=== PATIENT | male | born 1970 | race Caucasian/White ===

== ENCOUNTER → 2019-10-15 | Outpatient (CLI) | payer BC ==
--- NOTE | 2019-10-15 21:37 | MR ---
EXAMINATION TYPE: MR shoulder LT wo con DATE OF EXAM: 10/15/2019 COMPARISON: None HISTORY: LT Shoulder pain TECHNIQUE: Multiplanar, multisequence imaging of the left shoulder is performed without contrast. FINDINGS: Rotator Cuff: Supraspinatus tendon is torn and retracted to the level of the acromion. Infraspinatus tendon is attenuated and irregular and likely partially torn Acromioclavicular Joint: Hypertrophic changes are present causing mass effect on the musculotendinous junction of supraspinatus, distal acromion shows a spur Glenohumeral Joint: Intact Labrum: The labrum appears grossly intact given limitation of non-arthrogram study. Biceps Tendon: The long head of biceps is in normal location within bicipital groove, fluid is presen t along the tendon . Bone marrow signal: Pseudocysts are present within the humeral head. Other: There is fluid signal present in the subacromial subdeltoid bursa. IMPRESSION: Rotator cuff tear, correlate for impingement.
== END ==
LOC: RADMRIMAIN 20:42
PROVIDERS: ATTEND Orthopaedic Surgery
DX: M75.102 Unspecified rotator cuff tear or rupture of left shoulder, not specified as traumatic (principal)

== ENCOUNTER → 2020-10-15 | Outpatient (CLI) | payer BC ==
--- NOTE | 2020-10-17 11:40 | NM ---
EXAMINATION TYPE: NM thyroid image w uptake DATE OF EXAM: 10/16/2020 COMPARISON: NONE HISTORY: E04.2 nontoxic multinodular goiter TECHNIQUE: Thyroid iodine uptake is calculated and images performed after the oral administration of 299 uCi 1-123 Capsule. FINDINGS: There is normal distribution of activity throughout the gland. The 4 hour iodine uptake is calculated at 9.3% (normal range 8-14%). The 24-hour iodine uptake is calculated at 20.5% (normal ra nge 15-35%). IMPRESSION: Normal thyroid scan and uptake.
== END | disposition home or self-care (01) ==
LOC: RADNMMAIN 08:46
PROVIDERS: ATTEND Internal Medicine Endocrinology, Diabetes & Metabolism
DX: E04.2 Nontoxic multinodular goiter (principal)
CPT/HCPCS: 78014; A9516

== ENCOUNTER 2020-12-06 14:57 | Emergency (ER) | payer BC ==
[2020-12-06 15:05] VITALS: RESP 18; TEMP 97.9
--- NOTE | 2020-12-06 15:25 | ED ---
General Adult HPI - General Chief complaint: ENT Stated complaint: Diff swallowing,Mass in throat Time Seen by Provider: 12/06/20 15:22 Source: patient Mode of arrival: ambulatory Limitations: no limitations - History of Present Illness Initial comments: Patient presents the ED with his for evaluation. Patient states that he was recently diagnosed with a right-sided thyroid "goiter", for which he is seeing an registered dental assistant rda. He states that he recently had an appointment with his registered dental assistant rda, during which she discovered a left-sided neck mass on examination. Patient states that he is scheduled to have a CT done later this month for further evaluation of this neck mass. Patient states that over the past couple of months he has developed progressive dysphagia, although he states that he is still able to eat and drink. Patient states that today he has noticed some "numbness" along his anterior neck bilaterally in the area of his m asses, and this has concerned him. Patient denies any other areas of numbness, and he denies any area of focal weakness. Patient denies having any pain, fever or chills, headache, visual changes, speech difficulty, odynophagia, sore throat, cough or cold symptoms, chest pain, dyspnea, palpitations, dizziness, nausea or vomiting, abdominal pain, diarrhea, urinary symptoms, or any other symptoms or complaints. - Related Data Allergies Allergy/AdvReac Type Severity Reaction Status Date / Time No Known Allergies Allergy Verified 12/06/20 15:05 Review of Systems ROS Statement: Those systems with pertinent positive or pertinent negative responses have been documented in the HPI. ROS Other: All systems not noted in ROS Statement are negative. Past Medical History Past Medical History: Thyroid Disorder History of Any Multi-Drug Resistant Organisms: None Reported Past Surgical History: No Surgical Hx Reported Past Psychological History: No Psychological Hx Reported Smoking Status: Former smoker Past Alcohol Use History: None Reported Past Drug Use History: Marijuana General Exam Limitations: no limitations General appearance: alert, in no apparent distress Head exam: Present: atraumatic, normocephalic Eye exam: Present: normal appearance, PERRL, EOMI ENT exam: Present: normal oropharynx, mucous membranes moist Neck exam: Present: normal inspection, full ROM, other (No significant mass is appreciated on my examination; patient has no tenderness with palpation along anterior neck and thyroid gland; trachea is in midline). Absent: tenderness Respiratory exam: Present: normal lung sounds bilaterally. Absent: respiratory distress, wheezes, rales, rhonchi, stridor Cardiovascular Exam: Present: regular rate, normal rhythm, normal heart sounds, other (Normal radial pulses bilaterally) GI/Abdominal exam: Present: soft. Absent: distended, tenderness, guarding Extremities exam: Present: full ROM. Absent: pedal edema Neurological exam: Present: alert, oriented X3, CN II-XII intact. Absent: motor sensory deficit Psychiatric exam: Present: normal affect, normal mood Skin exam: Present: warm, dry, intact, normal color Course Vital Signs 12/06/20 15:01 Temperature 97.9 F Pulse Rate 58 L Respiratory 18 Rate Blood Pressure 150/90 O2 Sat by Pulse 98 Oximetry Medical Decision Making - Lab Data Result diagrams: 12/06/20 15:34 12/06/20 15:34 Lab Results 12/06/20 12/06/20 Range/Units 15:34 15:34 WBC 5.4 (3.8-10.6) k/uL RBC 5.12 (4.30-5.90) m/uL Hgb 16.2 (13.0-17.5) gm/dL Hct 45.8 (39.0-53.0) % MCV 89.3 (80.0-100.0) fL MCH 31.5 (25.0-35.0) pg MCHC 35.3 (31.0-37.0) g/dL RDW 12.9 (11.5-15.5) % Plt Count 206 (150-450) k/uL MPV 6.4 Neutrophils % 58 % Lymphocytes % 29 % Monocytes % 6 % Eosinophils % 3 % Basophils % 1 % Neutrophils # 3.1 (1.3-7.7) k/uL Lymphocytes # 1.6 (1.0-4.8) k/uL Monocytes # 0.3 (0-1.0) k/uL Eosinophils # 0.2 (0-0.7) k/uL Basophils # 0.1 (0-0.2) k/uL Sodium 136 L (137-145) mmol/L Potassium 4.2 (3.5-5.1) mmol/L Chloride 104 (98-107) mmol/L Carbon Dioxide 26 (22-30) mmol/L Anion Gap 6 mmol/L BUN 16 (9-20) mg/dL Creatinine 0.85 (0.66-1.25) mg/dL Est GFR (CKD-EPI)AfAm >90 (>60 ml/min/1.73 sqM) Est GFR (CKD-EPI)NonAf >90 (>60 ml/min/1.73 sqM) Glucose 93 (74-99) mg/dL Calcium 9.4 (8.4-10.2) mg/dL TSH 0.606 (0.465-4.680) mIU/L - Radiology Data Radiology results: report reviewed (CT soft tissue neck with IV contrast: There is a rounded low-density area right thyroid lobe consistent with a cyst) Disposition Clinical Impression: Thyroid cyst Disposition: HOME SELF-CARE Condition: Stable Is patient prescribed a controlled substance at d/c from ED?: No Referrals: Sujit Guerrero DO [Primary Care Provider] - 1-2 days
[2020-12-06] MEDS ORDERED: SODIUM CHLORIDE 0.9% 1,000 ML IV ONE (15:32)
[2020-12-06 15:47] LABS: Basophils # (A) 0.1 k/uL (0-0.2); Basophils % (A) 1 %; Eosinophils # (A) 0.2 k/uL (0-0.7); Eosinophils % (A) 3 %; HCT 45.8 % (39.0-53.0); HGB 16.2 gm/dL (13.0-17.5); Lymphocytes # (A) 1.6 k/uL (1.0-4.8); Lymphocytes % (A) 29 %; MCH 31.5 pg (25.0-35.0); MCHC 35.3 g/dL (31.0-37.0); MCV 89.3 fL (80.0-100.0); Mean Platelet Volume 6.4; Monocytes # (A) 0.3 k/uL (0-1.0); Monocytes % (A) 6 %; Neutrophils # (A) 3.1 k/uL (1.3-7.7); Neutrophils % (A) 58 %; Platelet Count 206 k/uL (150-450); RBC 5.12 m/uL (4.30-5.90); RDW 12.9 % (11.5-15.5); WBC 5.4 k/uL (3.8-10.6)
[2020-12-06 16:04] LABS: African American GFR (CKD) >90 (>60 ml/min/1.73 sqM); Anion Gap 6 mmol/L; Blood Urea Nitrogen 16 mg/dL (9-20); Calcium 9.4 mg/dL (8.4-10.2); Carbon Dioxide 26 mmol/L (22-30); Chloride 104 mmol/L (98-107); Glucose 93 mg/dL (74-99); Non-African American GFR(CKD) >90 (>60 ml/min/1.73 sqM); Potassium 4.2 mmol/L (3.5-5.1); Sodium 136 mmol/L (137-145)
--- NOTE | 2020-12-06 16:40 | CT ---
EXAMINATION TYPE: CT soft tissue neck w con DATE OF EXAM: 12/06/2020 COMPARISON: None HISTORY: Left side thyroid nodule CT DLP: 436.8 mGycm Automated exposure control for dose reduction was used. CONTRAST: Performed with IV Contrast, patient injected with 100 mL of Isovue 300. Images were obtained from the aortic arch to the top of the frontal sinuses with IV contrast. Superior mediastinum is intact. There is normal branching pattern of the great vessels. There is roun ded 12 mm fluid density in the right thyroid lobe consistent with a cyst. There is normal opacification of the carotid arteries and jugular veins. There is minimal plaque form ation at the left carotid artery bifurcation. Trachea appears normal. Epiglottis is normal. Subglottic trachea appears normal. The tongue appears normal. Tonsils and adenoids appear normal. Parotid glands and submandibular salivary glands are symmetric. There are a few anterior triangle cervical lymph nodes bilaterally. These measure up to 12 mm. There is normal aeration of the paranasal sinuses. I see no bony destructive process. Prevertebral so ft tissues appear intact. There is anterior spurring in the lower cervical spine. There is no dominic alejandrina fracture. Disc spaces are fairly normal. IMPRESSION: There is rounded low-density area right thyroid lobe consistent with a cyst. No evidence of a mass in the left thyroid lobe.
[2020-12-06 16:56] VITALS: BP 147/65; PULSE 65
== END 2020-12-06 17:14 | disposition home or self-care (01) ==
LOC: EC 14:57
DX: E04.1 Nontoxic single thyroid nodule (principal); E07.9 Disorder of thyroid, unspecified; Z87.891 Personal history of nicotine dependence; F12.90 Cannabis use, unspecified, uncomplicated
CPT/HCPCS: 36415; 80048; 84443; 85025; 70491; 99283; Q9967

== ENCOUNTER → 2021-01-27 | Outpatient (CLI) | payer BC ==
--- NOTE | 2021-01-28 08:43 | P.ARTDOP ---
Arterial Doppler LOWER EXTREMITY ARTERIAL DOPPLER: DATE OF SERVICE: 01/27/2021 Reason for study: Restless legs. Doppler waveforms: Multiphasic bilaterally throughout. Pulse volume recording: []. Pressure gradients: None. Ankle-brachial indices: Greater than 1 bilaterally. Toe brachial indices: [] on the right, [] on the left Impression: Normal study.
== END | disposition home or self-care (01) ==
LOC: RADUSWWP 07:43
PROVIDERS: ATTEND Family Medicine
DX: I70.213 Atherosclerosis of native arteries of extremities with intermittent claudication, bilateral legs (principal)
CPT/HCPCS: 93922

== ENCOUNTER → 2021-08-10 | Outpatient (CLI) | payer BC ==
[2021-08-11 00:41] LABS: T4, Free (Free Thyroxine) 1.39 ng/dL (0.800-1.800)
== END | disposition home or self-care (01) ==
LOC: LABWHC1 12:59
PROVIDERS: ATTEND Internal Medicine Endocrinology, Diabetes & Metabolism
DX: E05.90 Thyrotoxicosis, unspecified without thyrotoxic crisis or storm (principal)
CPT/HCPCS: 36415; 84439; 84443; 84480

== ENCOUNTER → 2022-04-24 | Outpatient (CLI) | payer BC ==
[2022-04-24 17:28] LABS: T4, Free (Free Thyroxine) 1.28 ng/dL (0.800-1.800)
== END | disposition home or self-care (01) ==
LOC: LABWHC1 09:47
PROVIDERS: ATTEND Internal Medicine Endocrinology, Diabetes & Metabolism
DX: E05.90 Thyrotoxicosis, unspecified without thyrotoxic crisis or storm (principal)
CPT/HCPCS: 36415; 84439; 84443; 84481